=== PATIENT | female | born 1965 | race Caucasian/White ===

== ENCOUNTER 2018-12-09 14:51 | Emergency (ER) | payer OTHER, MEDICAID | END 2018-12-09 17:25 | disposition home or self-care (01) | LOC: FTE 14:51 | DX: S89.92XA Unspecified injury of left lower leg, initial encounter (principal); E03.9 Hypothyroidism, unspecified; W01.0XXA Fall on same level from slipping, tripping and stumbling without subsequent striking against object, initial encounter; Y92.512 Supermarket, store or market as the place of occurrence of the external cause | CPT/HCPCS: 29505; 72100; 73564-50; 99284-25 ==